=== PATIENT | male | born 1980 | race Caucasian/White ===

== ENCOUNTER → 2021-11-10 | Outpatient (CLI) | payer BC ==
--- NOTE | 2021-11-10 12:13 | RAD ---
EXAM: US RENAL ARTERY DUPLEX CLINICAL HISTORY: Elevated creatinine. Type 2 diabetes. COMPARISON: None available. TECHNIQUE: Duplex sonographic assessment of the kidneys and associated vasculature. FINDINGS: The right kidney measures 10.3 cm longitudinal and the left kidney 11.6 cm. No hydronephrosis. Peak systolic velocity within the proximal aorta measured at 144 centimeters per second. Right kidney: Renal vein: Patent Renal artery: Proximal, mid and distal peak systolic velocities of 137 cm/s, 128 cm/s and 126 cm/s, r espectively. Corresponding resistive indices of 0.54, 0.61 and 0.59. Intrarenal resistive index: 0.54 Greatest renal artery-aorta ratio: 0.95 Left kidney: Renal vein: Patent Renal artery: Proximal, mid and distal peak systolic velocities of 94 cm/s, 119 cm/s and 101 cm/s, re spectively. Corresponding resistive indices of 0.62, 0.61 and 0.54 Intrarenal resistive index: 0.42 Greatest renal artery-aorta ratio: 0.83 IMPRESSION: 1. No ultrasound evidence for a hemodynamically significant renal artery stenosis. 2. Morphologically unremarkable kidneys which are within normal limits for size. No hydronephrosis. Electronically signed by: DAYLIN MEJIAS MD (11/10/2021 12:10 PM) [facility]
== END ==
LOC: US 09:10
PROVIDERS: ATTEND Family Medicine
DX: E11.9 Type 2 diabetes mellitus without complications (principal)
CPT/HCPCS: 93975